=== PATIENT | female | born 1970 | race Caucasian/White ===

== ENCOUNTER → 2016-10-12 | Outpatient (REF) | payer OTHER | LOC: M LAB REF 16:39 | PROVIDERS: ATTEND Physician Assistant | DX: J02.9 Acute pharyngitis, unspecified (principal) ==

== ENCOUNTER → 2016-12-05 | Outpatient (REF) | payer OTHER | LOC: M SFHCWAGY 13:47 | PROVIDERS: ATTEND Nurse Practitioner Women's Health | DX: Z12.4 Encounter for screening for malignant neoplasm of cervix (principal) ==

== ENCOUNTER → 2016-12-05 | Outpatient (CLI) | payer OTHER ==
--- NOTE | 2016-12-05 15:00 | REPMRS ---
Patient History The patient states she had a clinical breast exam in 11/2016. No known family history of cancer. Digital Woman Screen Mammo: December 05, 2016 - Exam #: [id number] Bilateral CC and MLO view(s) were taken. Technologist: Ashley Juarez, Technologist Prior study comparison: November 09, 2015, digital woman screen mammo performed at [facility]. November 25, 2013, digital woman screen mammo performed at [facility] to [facility]. FINDINGS: The breast tissue is heterogeneously dense. This may lower the sensitivity of mammography. There is a moderate amount of heterogeneously dense fibroglandular tissue which is fairly symmetric. There is no interval development of dominant mass, architectural distortion, or clustered microcalcification typical of malignancy. There has been no change in the appearance of the mammogram from the prior studies. ASSESSMENT: BI-RADS/ACR category 1 mammogram. Negative. Recommendation Routine screening mammogram of both breasts in 1 year (for women over age 40). This mammogram was interpreted with the aid of an FDA-approved computer-aided dectection system. Electronically Signed By: Pedro Ramirez MD 12/05/16 5740
== END ==
LOC: M WHC 13:46
PROVIDERS: ATTEND Nurse Practitioner Women's Health
DX: Z12.31 Encounter for screening mammogram for malignant neoplasm of breast (principal)

== ENCOUNTER → 2017-12-06 | Outpatient (REF) | payer OTHER | LOC: M SFHCWAGY 13:52 | DX: Z12.4 Encounter for screening for malignant neoplasm of cervix (principal) ==

== ENCOUNTER → 2017-12-06 | Outpatient (CLI) | payer OTHER | LOC: M WHC 13:27 | DX: Z12.31 Encounter for screening mammogram for malignant neoplasm of breast (principal); R92.8 Other abnormal and inconclusive findings on diagnostic imaging of breast | CPT/HCPCS: 77067 ==

== ENCOUNTER → 2018-12-09 | Outpatient (REF) | payer OTHER ==
[2018-12-12 15:52] LABS: HPV HYBRID CAPTURE II Negative (Negative)
== END ==
LOC: M SFHCWAGY 09:27
PROVIDERS: ATTEND Nurse Practitioner Women's Health
DX: Z12.4 Encounter for screening for malignant neoplasm of cervix (principal)
CPT/HCPCS: 87624; G0123

== ENCOUNTER → 2018-12-09 | Outpatient (CLI) | payer OTHER ==
--- NOTE | 2018-12-09 12:59 | REPMRS ---
Patient History The patient states she had a clinical breast exam in 12/17 No known family history of cancer. Digital Woman Screen Mammo: December 09, 2018 - Exam #: [id number] Bilateral CC and MLO view(s) were taken. Technologist: Monica Stafford, Technologist Prior study comparison: December 06, 2017, digital woman screen mammo performed at [facility]. December 05, 2016, digital woman screen mammo performed at [facility]. FINDINGS: The breast tissue is heterogeneously dense. This may lower the sensitivity of mammography. There has been no change in the appearance of the mammogram from the prior studies. There is a moderate amount of residual fibroglandular tissue which is fairly symmetric. There is no interval development of dominant mass, architectural distortion, or clustered microcalcification typical of malignancy. Scattered lymph nodes are seen in the axillae. 3-D tomosynthesis shows no additional findings. No significant changes when compared with prior studies. Assessment: BI-RADS/ACR category 2 mammogram. Benign Findings. Recommendation Routine screening mammogram in 1 year (for women over age 40). This mammogram was interpreted with the aid of an FDA-approved computer-aided dectection system. A. Negative x-ray reports should not delay biopsy if a dominant or clinically suspicious mass is present. B. Four to eight percent of cancers are not identified by mammography. C. Adenosis and dense breast may obscure an underlying neoplasm. Electronically Signed By: Lew Montesinos MD 12/09/18 1548
== END ==
LOC: M WHC 09:25
PROVIDERS: ATTEND Nurse Practitioner Women's Health
DX: Z12.31 Encounter for screening mammogram for malignant neoplasm of breast (principal)

== ENCOUNTER → 2019-12-11 | Outpatient (CLI) | payer OTHER ==
--- NOTE | 2019-12-11 09:38 | REPMRS ---
Patient History The patient states she had a clinical breast exam in November 2019.No known family history of cancer. Digital Woman Screen Mammo: December 11, 2019 - Exam #: [id number] Bilateral CC and MLO view(s) were taken. Technologist: Nicol Jung, Technologist Prior study comparison: December 09, 2018, bilateral digital woman screen mammo performed at [facility]. December 06, 2017, digital woman screen mammo performed at [facility]. December 05, 2016, digital woman screen mammo performed at [facility]. FINDINGS: The breast tissue is heterogeneously dense. This may lower the sensitivity of mammography. There is a moderate amount of heterogeneously dense fibroglandular tissue which is fairly symmetric. There is no interval development of dominant mass, architectural distortion, or grouped microcalcification typical of malignancy. There has been no change in the appearance of the mammogram from the prior studies. 3-D tomosynthesis shows no additional findings. Assessment: BI-RADS/ACR category 1 mammogram. Negative Mammogram. Recommendation Routine screening mammogram of both breasts in 1 year (for women over age 40). This patient's Lifetime Breast Cancer RIsk is estimated at 9.0 %. This mammogram was interpreted with the aid of an FDA-approved computer-aided dectection system. Electronically Signed By: Pedro Ramirez MD 12/11/19 0937
== END ==
LOC: M WHC 08:26
PROVIDERS: ATTEND Nurse Practitioner Women's Health
DX: Z12.31 Encounter for screening mammogram for malignant neoplasm of breast (principal)

== ENCOUNTER → 2019-12-11 | Outpatient (REF) | payer OTHER | LOC: M SFHCWAGY 10:23 | PROVIDERS: ATTEND Nurse Practitioner Women's Health | DX: Z12.4 Encounter for screening for malignant neoplasm of cervix (principal) ==

== ENCOUNTER → 2020-05-22 | Outpatient (CLI) | payer OTHER ==
[~2020-05-22] MED LIST: ATOR80TA59 PO; BUPR300T92 PO
== END ==
LOC: M LABSMTC 09:41
PROVIDERS: ATTEND Anesthesiology
DX: Z01.812 Encounter for preprocedural laboratory examination (principal); Z11.59 Encounter for screening for other viral diseases

== ENCOUNTER 2020-05-27 10:47 | Day surgery (SDC) | payer OTHER ==
[~2020-05-27] VITALS: Ht 167.6 cm; Wt 63.1 kg
[~2020-05-27 10:47] MED LIST changes: -ATOR80TA59 PO; -BUPR300T92 PO; +NS 1,000 ML IV ONE
[2020-05-27] MEDS ORDERED: ATOR80TA59 PO (11:01)
[2020-05-27] MEDS ORDERED: BUPR300T92 PO (11:01)
[2020-05-27] MEDS ORDERED: propofoL 200 MG/20 ML VIAL As Ordered ONE ×3 (11:33→11:47)
[2020-05-27] MEDS ORDERED: LIDOCAINE 2% 100MG/5ML SDV (FOR ANES.) As Ordered ONE (11:33)
[2020-05-27 12:23] VITALS: BP 143/82
--- NOTE | 2020-06-09 11:36 | ROOR ---
Patient Name: Yamila Garcia Procedure Date: 05/27/2020 9:20 AM Date of : 1970 Age: 50 Room: [facility] Gender: Female Note Status: Finalized Procedure: Colonoscopy Indications: Screening for colorectal malignant neoplasm Providers: Sampson Fritz Jr, MD Referring MD: Joyce Barton Requesting Provider: Medicines: Propofol per Anesthesia Complications: No immediate complications. Procedure: Pre-Anesthesia Assessment: - Prior to the procedure, a History and Physical was performed, and patient medications and allergies were reviewed. The patient is competent. The risks and benefits of the procedure and the sedation options and risks were discussed with the patient. All questions were answered and informed consent was obtained. Patient identification and proposed procedure were verified by the physician and the nurse in the pre-procedure area and in the procedure room. Mental Status Examination: alert and oriented. Airway Examination: normal oropharyngeal airway and neck mobility. Respiratory Examination: clear to auscultation. CV Examination: normal. ASA Grade Assessment: II - A patient with mild systemic disease. After reviewing the risks and benefits, the patient was deemed in satisfactory condition to undergo the procedure. The anesthesia plan was to use moderate sedation / analgesia (conscious sedation). Immediately prior to administration of medications, the patient was re-assessed for adequacy to receive sedatives. The heart rate, respiratory rate, oxygen saturations, blood pressure, adequacy of pulmonary ventilation, and response to care were monitored throughout the procedure. The physical status of the patient was re-assessed after the procedure. The Colonoscope was introduced through the anus and advanced to the cecum, identified by appendiceal orifice and ileocecal valve. The colonoscopy was performed without difficulty. The patient tolerated the procedure well. The quality of the bowel preparation was adequate. Findings: The rectum, recto-sigmoid colon, sigmoid colon, descending colon, transverse colon, ascending colon, cecum, appendiceal orifice and ileocecal valve appeared normal. Impression: - The rectum, recto-sigmoid colon, sigmoid colon, descending colon, transverse colon, ascending colon, cecum, appendiceal orifice and ileocecal valve are normal. - No specimens collected. Recommendation: - Discharge patient to home (ambulatory). - Repeat colonoscopy in 10 years for screening purposes. Sampson Fritz Jr, MD 05/27/2020 11:56:20 AM Number of Addenda: 0 Note Initiated On: 05/27/2020 9:20 AM Estimated Blood Loss: Estimated blood loss: none.
== END 2020-05-27 12:22 | disposition home or self-care (01) ==
LOC: M OPP 10:47
PROVIDERS: ATTEND Surgery
DX: Z12.11 Encounter for screening for malignant neoplasm of colon (principal); E78.00 Pure hypercholesterolemia, unspecified; Z79.899 Other long term (current) drug therapy; Z87.891 Personal history of nicotine dependence

== ENCOUNTER → 2020-12-13 | Outpatient (REF) | payer OTHER ==
[~2020-12-13] MED LIST changes: +ATOR80TA59 PO; +BUPR300T92 PO; -NS 1,000 ML IV ONE
== END ==
LOC: M SFHCWAGY 12:56
PROVIDERS: ATTEND Nurse Practitioner Women's Health
DX: Z12.4 Encounter for screening for malignant neoplasm of cervix (principal); Z87.898 Personal history of other specified conditions

== ENCOUNTER → 2020-12-13 | Outpatient (CLI) | payer OTHER ==
--- NOTE | 2020-12-13 10:20 | REPMRS ---
Patient History The patient states she had a clinical breast exam in 11/2020. No known family history of cancer. No Hormone Replacement Therapy Digital Woman Screen Mammo: December 13, 2020 - Exam #: [id number] Bilateral CC and MLO view(s) were taken. Technologist: Ashley Juarez, Technologist Prior study comparison: December 11, 2019, bilateral digital woman screen mammo performed at [facility]. December 09, 2018, bilateral digital woman screen mammo performed at [facility]. December 06, 2017, digital woman screen mammo performed at [facility]. FINDINGS: The breast tissue is heterogeneously dense. This may lower the sensitivity of mammography. The Volpara volumetric breast density category is: C. There is a moderate amount of heterogeneously dense fibroglandular tissue which is fairly symmetric. There is no interval development of dominant mass, architectural distortion, or grouped microcalcification typical of malignancy. There has been no change in the appearance of the mammogram from the prior studies. 3-D tomosynthesis shows no additional findings. Assessment: BI-RADS/ACR category 1 mammogram. Negative Mammogram. Recommendation Routine screening mammogram of both breasts in 1 year (for women over age 40). This patient's [facility] Lifetime Breast Cancer RIsk is estimated at 8.8 %. This mammogram was interpreted with the aid of an FDA-approved computer-aided dectection system. Electronically Signed By: Pedro Ramirez MD 12/13/20 [id number]
== END ==
LOC: M WHC 08:05
PROVIDERS: ATTEND Nurse Practitioner Women's Health
DX: Z12.31 Encounter for screening mammogram for malignant neoplasm of breast (principal)

== ENCOUNTER → 2021-12-14 | Outpatient (CLI) | payer OTHER | LOC: M WHC 08:48 | PROVIDERS: ATTEND Specialist | DX: Z12.31 Encounter for screening mammogram for malignant neoplasm of breast (principal) ==

== ENCOUNTER → 2021-12-14 | Outpatient (REF) | payer OTHER | LOC: M SFHCWAGY 12:51 | PROVIDERS: ATTEND Specialist | DX: R87.610 Atypical squamous cells of undetermined significance on cytologic smear of cervix (ASC-US) (principal); Z12.4 Encounter for screening for malignant neoplasm of cervix | CPT/HCPCS: 87624; G0123 ==

== ENCOUNTER → 2023-02-07 | Outpatient (REF) | payer OTHER | LOC: M SFHCWAGY 10:35 | PROVIDERS: ATTEND Nurse Practitioner Family | DX: Z12.4 Encounter for screening for malignant neoplasm of cervix (principal); Z77.9 Other contact with and (suspected) exposures hazardous to health | CPT/HCPCS: 87624; G0123 ==

== ENCOUNTER → 2023-02-07 | Outpatient (CLI) | payer OTHER | LOC: M WHC 14:09 | PROVIDERS: ATTEND Specialist | DX: Z12.31 Encounter for screening mammogram for malignant neoplasm of breast (principal) ==

== ENCOUNTER 2023-11-22 13:36 | Emergency (ER) | payer OTHER ==
[~2023-11-22] VITALS: Ht 167.6 cm; Wt 69.4 kg
[2023-11-22] MEDS ORDERED: HYDR12CA (13:41)
[2023-11-22 14:19] LABS: BASO # 0.1 10^3/uL (0.0-0.2); BASO % 0.5 % (0.0-1.0); EOS # 0.2 10^3/uL (0.0-0.5); EOS % 2.5 % (0.0-3.0); HEMATOCRIT 44.9 % (36.0-47.0); LYMPH # 2.8 10^3/uL (1.5-5.0); LYMPH % 29.9 % (24.0-44.0); MEAN CORPUSCULAR HEMOGLOBIN 30.5 pg (27.0-33.0); MEAN CORPUSCULAR HGB CONC 33.4 g/dl (32.0-36.5); MEAN CORPUSCULAR VOLUME 91.4 fl (80.0-96.0); MONO # 0.6 10^3/uL (0.0-0.8); MONO % 6.9 % (2.0-8.0); NEUTROPHILS # 5.6 10^3/uL (1.5-8.5); NEUTROPHILS % 59.9 % (36.0-66.0); PLATELET COUNT, AUTOMATED 311 10^3/uL (150-450); RED BLOOD COUNT 4.91 10^6/uL (4.00-5.40); WHITE BLOOD COUNT 9.3 10^3/uL (4.0-10.0)
[2023-11-22] MEDS: ASPIRIN 81MG CHEW TABLET PO ONE (14:28)
[2023-11-22 14:46] LABS: CK-MB VALUE MASS < 1.0 NG/ML (<3.6)
[2023-11-22 14:48] LABS: CPK CREATINE PHOSPHOKINASE 46 U/L (34-145); MB/CK RELATIVE INDEX 2.17 (< OR =4)
[2023-11-22 14:50] LABS: ALBUMIN 4.2 G/DL (3.2-5.2); ALKALINE PHOSPHATASE 109 U/L (46-116); ALT/SGPT 42 U/L (7.0-40); AST/SGOT 30 U/L (<34); BILIRUBIN,DIRECT < 0.1 MG/DL (<0.4); BILIRUBIN,TOTAL 0.4 MG/DL (0.3-1.2); BLOOD UREA NITROGEN 15 MG/DL (9-23); CALCIUM LEVEL 9.8 MG/DL (8.5-10.1); CARBON DIOXIDE LEVEL 28 MMOL/L (20-31); CHLORIDE LEVEL 106 MMOL/L (98-107); CREATININE FOR GFR 0.75 MG/DL (0.55-1.30); GLOMERULAR FILTRATION RATE > 60.0 (>51); GLUCOSE, FASTING 98 MG/DL (60-100); POTASSIUM SERUM 3.7 MMOL/L (3.5-5.1); SODIUM LEVEL 140 MMOL/L (136-145); TOTAL PROTEIN 7.4 G/DL (5.7-8.2)
[2023-11-22 15:14] LABS: INR 0.96; PROTHROMBIN TIME 12.5 SECONDS (12.5-14.5)
[2023-11-22 15:15] LABS: PARTIAL THROMBOPLASTIN TIME 26.7 SECONDS (24.8-34.2)
[2023-11-22 16:15] LABS: CK-MB VALUE MASS < 1.0 NG/ML (<3.6)
[2023-11-22 16:16] LABS: CPK CREATINE PHOSPHOKINASE 52 U/L (34-145); MB/CK RELATIVE INDEX 1.92 (< OR =4)
[2023-11-22] MEDS ORDERED: HYDR-3363 PO (16:43)
[2023-11-22 16:45] VITALS: BP 127/69; TEMP 97.4; O2SAT 97
== END 2023-11-22 16:57 | disposition home or self-care (01) ==
LOC: M ED 13:36
DX: R07.9 Chest pain, unspecified (principal); F41.9 Anxiety disorder, unspecified; I10 Essential (primary) hypertension; E78.5 Hyperlipidemia, unspecified; Z79.899 Other long term (current) drug therapy; F17.200 Nicotine dependence, unspecified, uncomplicated

== ENCOUNTER → 2024-03-12 | Outpatient (REF) | payer OTHER ==
[~2024-03-12] MED LIST changes: +BUPR-597 PO; -BUPR300T92 PO; +HYDR-3363 PO; +HYDR12CA
[2024-03-15 12:28] LABS: HPV APTIMA Not Detected (Not Detected)
== END ==
LOC: M SFHCWAGY 09:52
PROVIDERS: ATTEND Nurse Practitioner Family
DX: Z12.4 Encounter for screening for malignant neoplasm of cervix (principal)
CPT/HCPCS: 87624; G0123

== ENCOUNTER → 2024-03-12 | Outpatient (CLI) | payer OTHER | LOC: M WHC 14:45 | PROVIDERS: ATTEND Nurse Practitioner Family | DX: Z12.31 Encounter for screening mammogram for malignant neoplasm of breast (principal); R92.333 Mammographic heterogeneous density, bilateral breasts ==

== ENCOUNTER → 2025-06-30 | Outpatient (CLI) | payer OTHER ==
[~2025-06-30] MED LIST changes: -BUPR-597 PO; +BUPR-766 PO; +HYDR12.510; -HYDR12CA
== END ==
LOC: M WHC 15:46
PROVIDERS: ATTEND Physician Assistant Medical
DX: Z12.31 Encounter for screening mammogram for malignant neoplasm of breast (principal)

== ENCOUNTER → 2025-07-08 | Outpatient (REF) | payer OTHER | LOC: M PLALAB 09:56 | PROVIDERS: ATTEND Nurse Practitioner Family | DX: Z12.4 Encounter for screening for malignant neoplasm of cervix (principal) ==